=== PATIENT | female | born 1950 | race Caucasian/White ===

== ENCOUNTER 2017-06-04 21:34 | Emergency (ER) | payer BC, MEDICARE ==
[~2017-06-04] VITALS: Ht 162.6 cm; Wt 67.1 kg
[2017-06-04] MEDS ORDERED: RT-HYPERTONIC SALINE 3% 4 ML NEB ONE (21:43)
--- NOTE | 2017-06-04 21:49 | ED Cough/URI ---
General Chief Complaint: Respiratory Problems Stated Complaint: OBJECT STUCK IN THROAT Source: patient Exam Limitations: no limitations (ISABEL YU APRN) History of Present Illness Time seen by provider: 21:47 Initial Comments To ER with reports of having choked on one of her pills. In the evening she takes a handful of pills one of these was a blood pressure pill. This was white. While in the waiting room checking in she coughed up a small chunk of white but this was not the pill in its entirety. She reports a persistent irritation to the back of her throat and feels as if it would be easy to cough up, however it has not. Oxygen saturation is 99 percent on room air. She reports that she did hear some wheezing while at home immediately after this happened. Timing/Duration: just prior to arrival Severity/Quality: productive cough Associated Symptoms: denies symptoms (ISABEL YU APRN) Allergies and Home Medications Allergies Uncoded Allergies: ASA (Allergy, Unknown, 06/04/17) SHELL FISH (Allergy, Unknown, 06/04/17) Constitutional: see HPI EENTM: see HPI Respiratory: no symptoms reported Cardiovascular: no symptoms reported Genitourinary: no symptoms reported Musculoskeletal: no symptoms reported Skin: no symptoms reported Psychiatric/Neurological: No Symptoms Reported Hematologic/Lymphatic: No Symptoms Reported Immunological/Allergic: no symptoms reported (ISABEL YU APRN) Past Qbdtzkr-Zlerjt-Tkulop Hx Patient Social History Alcohol Use: Occasionally Uses Recreational Drug Use: No Smoking Status: Former Smoker Former Smoker, Quit: Sep 07, 1970 Recent Foreign Travel: No Contact w/Someone Who Travel: No Recent Hopitalizations: No Physical Abuse: No Sexual Abuse: No Mistreated: No Fear: No (ISABEL YU APRN) Immunizations Up To Date Tetanus Booster (TDap): More than 5yrs (ISABEL YU APRN) Seasonal Allergies Seasonal Allergies: No (ISABEL YU APRN) Surgeries History of Surgeries: Yes Surgeries: Abdominal, Hysterectomy, Orthopedic (ISABEL YU APRN) Respiratory History of Respiratory Disorde: No (ISABEL YU APRN) Cardiovascular History of Cardiac Disorders: Yes Cardiac Disorders: Hypertension (ISABEL YU APRN) Neurological History of Neurological Disord: No (ISABEL YU APRN) Genitourinary History of Genitourinary Disor: No (ISABEL YU APRN) Gastrointestinal History of Gastrointestinal Di: No (ISABEL YU APRN) Musculoskeletal History of Musculoskeletal Dis: No (ISABEL YU APRN) Endocrine History of Endocrine Disorders: No (ISABEL YU APRN) HEENT History of HEENT Disorders: No (ISABEL YU APRN) Cancer History of Cancer: No (ISABEL YU APRN) Psychosocial History of Psychiatric Problem: No Suicide Risk Score: 0 (ISABEL YU APRN) Integumentary History of Skin or Integumenta: No (ISABEL YU APRN) Blood Transfusions History of Blood Disorders: No (ISABEL YU APRN) Physical Exam Vital Signs Vital Sign - Last 12Hours 06/04/17 06/04/17 21:41 22:06 Temp 98.3 Pulse 100 Resp 18 B/P (MAP) 187/118 Pulse Ox 98 O2 Delivery Room Air (TAMELA TOVAR MD) Vital Signs Capillary Refill : (ISABEL YU APRN) General Appearance: WD/WN, no apparent distress Eyes: Bilateral Eye Normal Inspection, Bilateral Eye PERRL, Bilateral Eye EOMI HEENT: PERRL/EOMI, normal ENT inspection Respiratory: normal breath sounds, no respiratory distress, no accessory muscle use Cardiovascular: regular rate, rhythm, no murmur Gastrointestinal: normal bowel sounds, non tender, soft Neurologic/Psychiatric: alert, normal mood/affect, oriented x 3 Skin: normal color, warm/dry (ISABEL YU APRN) Progress/Results/Core Measures Results/Orders Lab Results Laboratory Tests Test 06/04/17 21:44 Range/Units White Blood Count 8.7 4.3-11.0 10^3/uL Red Blood Count 5.53 4.35-5.85 10^6/uL Hemoglobin 14.9 11.5-16.0 G/DL Hematocrit 43 35-52 % Mean Corpuscular Volume 79 L 80-99 FL Mean Corpuscular Hemoglobin 27 25-34 PG Mean Corpuscular Hemoglobin Concent 34 32-36 G/DL Red Cell Distribution Width 14.5 10.0-14.5 % Platelet Count 331 130-400 10^3/uL Mean Platelet Volume 10.3 7.4-10.4 FL Neutrophils (%) (Auto) 59 42-75 % Lymphocytes (%) (Auto) 27 12-44 % Monocytes (%) (Auto) 11 0-12 % Eosinophils (%) (Auto) 2 0-10 % Basophils (%) (Auto) 2 0-10 % Neutrophils # (Auto) 5.1 1.8-7.8 X 10^3 Lymphocytes # (Auto) 2.3 1.0-4.0 X 10^3 Monocytes # (Auto) 0.9 0.0-1.0 X 10^3 Eosinophils # (Auto) 0.2 0.0-0.3 10^3/uL Basophils # (Auto) 0.1 0.0-0.1 10^3/uL (TAMELA TOVAR MD) Medications Given in ED Current Medications Medications Dose Ordered Sig/Alexander Route Start Time Stop Time Status Last Admin Dose Admin Albuterol/ Ipratropium 3 ml ONCE ONCE INH 06/04/17 22:30 06/04/17 22:31 DC 06/04/17 22:35 3 ML Dexamethasone Sodium Phosphate 4 mg STK-MED ONCE .ROUTE 06/04/17 21:43 06/04/17 21:51 DC 06/04/17 22:06 15 MG Promethazine HCl/ Codeine 5 ml ONCE ONCE PO 06/04/17 22:30 06/04/17 22:31 DC 06/04/17 22:25 5 ML Sodium Chloride Hypertonic 4 ml STK-MED ONCE .ROUTE 06/04/17 21:43 06/04/17 21:51 DC 06/04/17 22:06 4 ML (TAMELA TOVAR MD) Vital Signs/I&O Vital Sign - Last 12Hours 06/04/17 06/04/17 06/04/17 21:41 22:06 22:35 Temp 98.3 Pulse 100 Resp 18 B/P (MAP) 187/118 Pulse Ox 98 97 96 O2 Delivery Room Air Room Air (TAMELA TOVAR MD) Progress Note : Progress Note 2346: I did evaluate the patient with Isabel Yu APRN. This was after initial therapy. Was improved with respect to wheezing but still having some cough. We will try duo neb and anticipate discharge home shortly but we will monitor her for improvement in symptoms. 5983: Improved overall. O2 sat still 100 percent. Heart rate upper 90s to 100. Patient states that she feels better. We will discharge her home with an albuterol inhaler. Discharged home with return precautions. Patient verbalize understanding instructions and agreement with plan. (TAMELA TOVAR MD) Departure Communication (Admissions) Progress Notes 2250- at this time she has no wheezing, and oxygen saturation remains 98 percent. Heart rate down to 100. His little more jittery but still coughing albeit less than upon arrival. Care turned over to Dr. TOVAR. Patient has a history of ARDS so we will observe her for a bit longer. (ISABEL YU APRN) Impression Impression: Primary Impression: pill aspiration Disposition: HOME, SELF-CARE Condition: Stable Departure-Patient Inst. Referrals: CHRIS HELMS MD (PCP/Family) Primary Care Physician Patient Instructions: Aspiration Pneumonia (DC) Add. Discharge Instructions: All discharge instructions reviewed with patient and/or family. Voiced understanding. Use albuterol inhaler 2 puffs every 4 hours as needed. You may use it every 2 hours but if you have to do this persistently, you should return to the ER for evaluation. Follow-up with your DrParmjit in a few days for recheck. Return for worse pain, fever, vomiting, weakness, breathing problems or other concerns as needed. ISABEL YU APRN Jun 04, 2017 21:49 TAMELA TOVAR MD Jun 04, 2017 23:13
[2017-06-04 21:57] LABS: BASOPHILS # (AUTO) 0.1 10^3/uL (0.0-0.1); BASOPHILS % (AUTO) 2 % (0-10); EOSINOPHILS # (AUTO) 0.2 10^3/uL (0.0-0.3); EOSINOPHILS % (AUTO) 2 % (0-10); LYMPHOCYTES # (AUTO) 2.3 X 10^3 (1.0-4.0); LYMPHOCYTES % (AUTO) 27 % (12-44); MEAN CORPUSCULAR HEMOGLOBIN 27 PG (25-34); MEAN CORPUSCULAR HGB CONC 34 G/DL (32-36); MEAN CORPUSCULAR VOLUME 79 FL (80-99); MEAN PLATELET VOLUME 10.3 FL (7.4-10.4); MONOCYTES # (AUTO) 0.9 X 10^3 (0.0-1.0); MONOCYTES % (AUTO) 11 % (0-12); NEUTROPHILS # (AUTO) 5.1 X 10^3 (1.8-7.8); NEUTROPHILS % (AUTO) 59 % (42-75); PLATELET COUNT 331 10^3/uL (130-400); RED BLOOD COUNT 5.53 10^6/uL (4.35-5.85); RED CELL DISTRIBUTION WIDTH 14.5 % (10.0-14.5); WHITE BLOOD COUNT 8.7 10^3/uL (4.3-11.0)
[2017-06-04] MEDS ORDERED: RT-HYPERTONIC SALINE 3% 4 ML NEB INH PRN (22:00)
[2017-06-04] MEDS ORDERED: DEXAMETHASONE 10 MG/ML (DECADRON) 1 ML VIAL INH ONE (22:00)
[2017-06-04] MEDS: DEXAMETHASONE 4 MG/ML SDV (DECADRON) ONE ×2 (22:04→22:06)
[2017-06-04] MEDS ORDERED: PROMETHAZINE/ CODEINE SYRUP 5 ML UDC ONE (22:16)
[2017-06-04] MEDS ORDERED: PROMETHAZINE/ CODEINE SYRUP 5 ML UDC PO ONE (22:30)
[2017-06-04] MEDS ORDERED: RT-ALBUTEROL/IPRATROPIUM 3 ML (DUONEB) VIAL INH ONE (22:30)
[2017-06-04] MEDS ORDERED: RX-ALBUTEROL INHALER (PROAIR) 8 GM IH STA (23:33)
[2017-06-04 23:50] VITALS: BP 118/80
--- NOTE | 2017-06-05 05:51 | Diagnostic Imaging Report ---
INDICATION: Wheezing. Cough. COMPARISON: None FINDINGS: Frontal and lateral views of the chest demonstrate normal heart size and pulmonary vascularity. The lungs are clear. There are no signs of infiltrate, pleural effusions or pneumothoraces. The visualized osseous structures show no acute abnormalities. IMPRESSION: 1. No acute process. No signs of infiltrates, effusions or pneumothoraces. Dictated by: Dictated on workstation # [id number]
--- NOTE | 2017-06-05 05:52 | Diagnostic Imaging Report ---
INDICATION: Aspiration. Wheezing. Cough. COMPARISON: None. FINDINGS: AP and lateral views of the neck for soft tissues were obtained. There is normal appearance of the airway. No evidence of airway narrowing or obstruction is identified on this examination. The epiglottis has a normal appearance. No tonsillar hypertrophy is identified. The visualized nasopharynx and hypopharynx have normal appearances. The osseous structures show degenerative changes of the cervical spine, but no acute abnormalities. IMPRESSION: 1. Unremarkable radiographic exam of the neck. Dictated by: Dictated on workstation # [id number]
== END 2017-06-04 23:50 | disposition home or self-care (01) ==
LOC: EDUNIT# 21:34 → ER 21:36
DX: T17.220A Food in pharynx causing asphyxiation, initial encounter (principal); I10 Essential (primary) hypertension; Z90.710 Acquired absence of both cervix and uterus; Z87.891 Personal history of nicotine dependence
CPT/HCPCS: 36415; 70360; 71020; 85025; 94640

== ENCOUNTER → 2018-04-14 | Outpatient (CLI) | payer BC, MEDICARE ==
--- NOTE | 2018-04-14 15:45 | Diagnostic Imaging Report ---
INDICATION: Cough for six months. TIME OF EXAM: 3:55 PM COMPARISON: Correlation is made with prior study from 06/04/2017. FINDINGS: The heart size is normal. The pulmonary vascularity is unremarkable. The lungs are clear. No infiltrate, effusion or pneumothorax is detected. IMPRESSION: No acute cardiopulmonary process is detected. Dictated by: Dictated on workstation # [id number]
== END ==
LOC: RAD 15:25
PROVIDERS: ATTEND Nurse Practitioner
DX: R05 Cough (principal)
CPT/HCPCS: 71046

== ENCOUNTER 2020-10-19 13:21 | Emergency (ER) | payer BC, MEDICARE ==
[~2020-10-19] VITALS: Ht 162 cm; Wt 66.0 kg
[2020-10-19] MEDS ORDERED: FAMOTIDINE 20MG/2ML IV (PEPCID) ONE (13:22)
--- NOTE | 2020-10-19 13:35 | ED General ---
General Chief Complaint: Allergic Reaction Stated Complaint: ALLERGIC REACTION Nursing Triage Note: PT ARRIVED PER EMS PT CO OF HAVING ALLERGIC RX TO MODERNA COVID VACCINATION. PT HAS TAKEN BENEDRYL 25MG AT 1235 AND 1240. PT STATES FELT SOA AND LIKE THROAT WAS CLOSING UP. PT DID GIVE SELF HER OWN EPPI PEN SHOT AT 1249. PT STATES FEELING IMPROVED LESS SOA. THROAT NO LONGER CLOSING UP. PT STATES DID NOT HAVE ANY RX TO 1ST COVID VACCINE. PT HAS SL IN L AC Nursing Sepsis Screen: No Definite Risk Source of Information: Patient Exam Limitations: No Limitations History of Present Illness Date Seen by Provider: Oct 19, 2020 Time Seen by Provider: 13:32 Initial Comments By EMS with reports of allergic reaction to her second Moderna Covid vaccine injection. This occurred about 10 minutes after the injection (roughly 1220) manifested as tightness in her throat, shortness of breath. She was given her epinephrine pen, 50 mg of Benadryl orally and transported by EMS. Timing/Duration: 1-2 Days Severity: Moderate Associated Systoms: Shortness of Air Allergies and Home Medications Allergies Uncoded Allergies: ASA (Allergy, Unknown, 06/04/17) SHELL FISH (Allergy, Unknown, 06/04/17) Patient Home Medication List Home Medication List Reviewed: Yes Review of Systems Review of Systems Constitutional: see HPI EENTM: see HPI Respiratory: no symptoms reported Cardiovascular: no symptoms reported Genitourinary: no symptoms reported Musculoskeletal: no symptoms reported Skin: no symptoms reported Psychiatric/Neurological: No Symptoms Reported Hematologic/Lymphatic: No Symptoms Reported Immunological/Allergic: no symptoms reported Past Xsxjsjx-Xnnbob-Pgdckn Hx Patient Social History Former Smoker, Quit: Sep 07, 1970 Recent Infectious Disease Expo: No Recent Hopitalizations: No Immunizations Up To Date Tetanus Booster (TDap): More than 5yrs Seasonal Allergies Seasonal Allergies: No Past Medical History Surgeries: Yes Abdominal, Hysterectomy, Orthopedic Respiratory: No Cardiac: Yes Hypertension Neurological: No Genitourinary: No Gastrointestinal: No Musculoskeletal: No Endocrine: No HEENT: No Cancer: No Psychosocial: No Integumentary: No Blood Disorders: No Physical Exam Vital Signs Vital Signs - First Documented 10/19/20 13:22 Temp 35.9 Pulse 105 Resp 18 B/P (MAP) 164/100 (121) Pulse Ox 100 Capillary Refill : Less Than 3 Seconds Height, Weight, BMI Height: 5'4.00" Weight: 148lbs. oz. [id number]; 25.00 BMI Method:Stated General Appearance: No Apparent Distress, WD/WN Eyes: Bilateral Eye Normal Inspection, Bilateral Eye PERRL, Bilateral Eye EOMI Neck: Full Range of Motion, Normal Inspection Respiratory: Lungs Clear, Normal Breath Sounds, No Accessory Muscle Use, No Respiratory Distress; No Respiratory Distress, No Rhonci, No Wheezing Cardiovascular: Tachycardia (rate 107) Gastrointestinal: Non Tender, Soft Extremity: Normal Capillary Refill, Normal Inspection Neurologic/Psychiatric: Alert, Oriented x3 Skin: Normal Color, Warm/Dry; No Rash Progress/Results/Core Measures Suspected Sepsis Recent Fever Within 48 Hours: No Infection Criteria Present: None New/Unexplained Altered Menta: No Sepsis Screen: No Definite Risk SIRS Temperature: Pulse: 105 Respiratory Rate: 18 Blood Pressure 164 /100 Mean: 121 Results/Orders My Orders Orders - ISABEL YU APRN General/Regular (10/19/20 Lunch) Medications Given in ED Current Medications Medications Dose Ordered Sig/Alexander Route Start Time Stop Time Status Last Admin Dose Admin Famotidine 20 mg STK-MED ONCE .ROUTE 10/19/20 13:22 10/19/20 13:28 DC 10/19/20 13:31 20 MG Vital Signs/I&O 10/19/20 13:22 Temp 35.9 Pulse 105 Resp 18 B/P (MAP) 164/100 (121) Pulse Ox 100 Capillary Refill : Less Than 3 Seconds Blood Pressure Mean: 121 Departure Communication (Admissions) She is already had Benadryl and epinephrine. I will add Pepcid. I do not want to give steroids as I do not want to blunt her immune response to this injection. Will observe her for several hours. 1600-feeling much better. Vitals are stable heart rate has reduced into the 80s and 90s. Blood pressure into the 140s systolic. Its been 4 hours since her epinephrine injection and no evidence for biphasic reaction. Impression Primary Impression: Allergic reaction Qualified Codes: T78.40XA - Allergy, unspecified, initial encounter Disposition: HOME, SELF-CARE Condition: Stable Departure-Patient Inst. Decision time for Depature: 15:59 Patient Instructions: Allergic Reaction ED Add. Discharge Instructions: 1. Return to ER for any worsening. Would be a good idea to take Pepcid 20 mg tablet twice a day for the next 2 to 3 days. Benadryl tablet every 4-6 hours as needed for any recurrent symptoms. Claritin or Zyrtec 1 tablet twice a day for the next 2 to 3 days. All discharge instructions reviewed with patient and/or family. Voiced understanding. ISABEL YU APRN Oct 19, 2020 13:35
[2020-10-19] MEDS ORDERED: CYCL10TA9 (13:36)
[2020-10-19] MEDS ORDERED: ESTR1PAT92 (13:36)
[2020-10-19] MEDS ORDERED: EZET10TA49 (13:36)
[2020-10-19] MEDS ORDERED: METR500T (13:36)
[2020-10-19] MEDS ORDERED: EPIN0.3P18 (13:36)
[2020-10-19] MEDS ORDERED: BISO1TAB3 (13:36)
[2020-10-19] MEDS ORDERED: CIPR-226 (13:36)
[2020-10-19 16:13] VITALS: BP 116/88
== END 2020-10-19 16:13 | disposition home or self-care (01) ==
LOC: EDUNIT# 13:21 → ER 13:23
DX: T80.62XA Other serum reaction due to vaccination, initial encounter (principal); T50.B95A Adverse effect of other viral vaccines, initial encounter; Z87.891 Personal history of nicotine dependence

== ENCOUNTER 2022-04-16 13:17 | Observation (INO) | payer BC ==
[~2022-04-16] VITALS: Ht 162.6 cm; Wt 70.0 kg
[~2022-04-16 13:17] MED LIST: BISO-2 PO; CIPR-226; CYCL10TA25 PO; EPIN0.3P18; ESTR1PAT92 TD; EZET10TA49 PO; METR500T
[2022-04-16 14:43] VITALS: BP 116/80
[2022-04-16] MEDS ORDERED: CEFUROXIME 1,500 MG/NS 50 ML IVPB IV SCH ×2 (15:00)
[2022-04-16] MEDS ORDERED: ACETAMINOPHEN 325 MG TABLET PO PRN (15:00)
[2022-04-16] MEDS ORDERED: APAP 300 MG/CODEINE 30 MG (TYLENOL #3) TAB PO PRN (15:15)
[2022-04-16] MEDS: CEFUROXIME 1,500 MG/NS 50 ML IVPB IV SCH ×4 (15:34→22:43)
[2022-04-16 15:40] LABS: BASOPHILS # (AUTO) 0.1 10^3/uL (0.0-0.1); BASOPHILS % (AUTO) 0 % (0-10); EOSINOPHILS # (AUTO) 0.1 10^3/uL (0.0-0.3); EOSINOPHILS % (AUTO) 1 % (0-10); HEMATOCRIT 44 % (35-52); HEMOGLOBIN 14.4 g/dL (11.5-16.0); LYMPHOCYTES % (AUTO) 7 % (12-44); MEAN CORPUSCULAR HEMOGLOBIN 26 pg (25-34); MEAN CORPUSCULAR HGB CONC 33 g/dL (32-36); MEAN CORPUSCULAR VOLUME 79 fL (80-99); MONOCYTES # (AUTO) 1.2 10^3/uL (0.0-1.0); MONOCYTES % (AUTO) 9 % (0-12); NEUTROPHILS # (AUTO) 11.7 10^3/uL (1.8-7.8); NEUTROPHILS % (AUTO) 83 % (42-75); PLATELET COUNT 344 10^3/uL (130-400); WHITE BLOOD COUNT 14.1 10^3/uL (4.3-11.0)
[2022-04-16 15:56] VITALS: BP 121/84
[2022-04-16 16:08] LABS: BAND NEUTROPHILS 0 %; LYMPHOCYTES % (MANUAL) 8 %; MONOCYTES % (MANUAL) 7 %; NEUTROPHILS % (MANUAL) 85 %
[2022-04-16 16:09] LABS: BASOPHILS % (MANUAL) 0 %; EOSINOPHILS % (MANUAL) 0 %
[2022-04-16 16:12] LABS: RBC MORPH NORMAL
[2022-04-16 16:42] LABS: CALCIUM 9.6 MG/DL (8.5-10.1); CREATININE SERUM 0.87 MG/DL (0.60-1.30); POTASSIUM 3.4 MMOL/L (3.6-5.0)
[2022-04-16 19:40] VITALS: BP 113/75
[2022-04-16 23:14] VITALS: BP 111/70
[2022-04-17 03:55] VITALS: BP 111/73
[2022-04-17] MEDS: CEFUROXIME 1,500 MG/NS 50 ML IVPB IV SCH ×6 (06:48→23:18)
--- NOTE | 2022-04-17 07:09 | Progress Note ---
Standard Progress Note Progress Notes/Assess & Plan Date Seen by a Provider: Apr 17, 2022 Time Seen by a Provider: 06:30 Progress/Assessment & Plan ENT-Molly-04/17-630 patient much improved less dav swallowing better did notrequire any precription pain medication wbc-14.1 yesterday OP-no trismus less swelling and redness of right tonsil no abscess seen IMP-right tonsilltis severe REc: 1, Patient overall much improved. continue IV antibitics for 24 more hours with steroids and then plan on home with oral ceftin and pred taper 2. diet as yair 3. patient may take home medications Final Diagnosis Right Peritonsilalr Cellulits TONI MANE MD Apr 17, 2022 07:08
[2022-04-17 08:28] VITALS: BP 109/73
[2022-04-17] MEDS ORDERED: VENL37.57 PO (08:42)
[2022-04-17] MEDS ORDERED: CYCL1DRO OU (08:43)
[2022-04-17] MEDS ORDERED: PANT40TA52 PO (08:45)
[2022-04-17] MEDS ORDERED: OMEG100032 PO (08:52)
[2022-04-17] MEDS ORDERED: LORA10TA76 PO (08:53)
[2022-04-17] MEDS ORDERED: MV-M1TAB38 PO (08:54)
[2022-04-17] MEDS ORDERED: DOCU-143 PO (08:54)
[2022-04-17] MEDS ORDERED: CHOL100048 PO (08:55)
[2022-04-17] MEDS ORDERED: ACET-2267 PO (08:56)
[2022-04-17 11:58] VITALS: BP 114/76
[2022-04-17 15:42] VITALS: BP 102/65
[2022-04-17 19:23] VITALS: BP 114/75
[2022-04-17 23:56] VITALS: BP 100/66
[2022-04-18 04:09] VITALS: BP 103/67
[2022-04-18] MEDS: CEFUROXIME 1,500 MG/NS 50 ML IVPB IV SCH ×2 (06:50)
--- NOTE | 2022-04-18 06:59 | Progress Note ---
Standard Progress Note Progress Notes/Assess & Plan Date Seen by a Provider: Apr 18, 2022 Time Seen by a Provider: 06:00 Progress/Assessment & Plan ENT-Molly-04/17-630 patient much improved less dav swallowing better did notrequire any precription pain medication wbc-14.1 yesterday OP-no trismus less swelling and redness of right tonsil no abscess seen IMP-right tonsilltis severe REc: 1, Patient overall much improved. continue IV antibitics for 24 more hours with steroids and then plan on home with oral ceftin and pred taper 2. diet as yair 3. patient may take home medications ENT-Molly-04/18-6am doing great-no pain swallowing without difficulty neck negative will discharge after her 7am antibiotics rtc-2 weeks patient has prescriptions to take home-cefting and pred taper call if symptoms return TONI MANE MD Apr 18, 2022 06:59
[2022-04-18 08:00] VITALS: BP 123/79
== END 2022-04-18 06:59 | disposition home or self-care (01) ==
LOC: 4TH 14:09 → UNDOADMOB 14:09 → 4TH 14:15 → UNDODISOB 04-18 08:00
PROVIDERS: ADMIT Otolaryngology Otolaryngology/Facial Plastic Surgery; ATTEND Otolaryngology Otolaryngology/Facial Plastic Surgery
DX: J36 Peritonsillar abscess (principal)
CPT/HCPCS: 36415; 80048; 85007; 85027; 96366; 96376; G0378